=== PATIENT | male | born 1975 | race Caucasian/White ===

== ENCOUNTER 2018-03-22 11:24 | Emergency (ER) | payer SELFPAY | END 2018-03-22 13:01 | disposition home or self-care (01) | LOC: SCSER 11:24 | DX: S71.111A Laceration without foreign body, right thigh, initial encounter (principal); Z87.891 Personal history of nicotine dependence; W45.8XXA Other foreign body or object entering through skin, initial encounter | CPT/HCPCS: 12002 ==